=== PATIENT | male | born 1955 ===

== ENCOUNTER 2017-10-20 12:53 | Emergency (ER) | payer MEDICAID ==
[2017-10-20 12:53] VITALS: BMI 21.6
[2017-10-20 13:09] VITALS: BP 95/60; PULSE 60; RESP 18; TEMP 98.1; O2SAT 99
[2017-10-20] MEDS ORDERED: Tdap Vaccine 0.5 ml Vial (10-64 yrs) IM ONE ×2 (13:21→13:29)
--- NOTE | 2017-10-20 13:24 | ED PDOC ---
Upper Extremity Pain/Injury Time Seen by Provider: 10/20/17 13:17 Chief Complaint (Nursing): Abnormal Skin Integrity Chief Complaint (Provider): Thumb Laceration History Per: Patient Onset/Duration Of Symptoms: Hrs (x3) Current Symptoms Are (Timing): Still Present Additional Complaint(s): 62 y/o right hand dominant male presents to the ED complaining of left thumb laceration sustained when he was using a knife and accidentally cut his thumb 3 hours ago. Patient reports he is unsure of his last tetanus vaccination. Denies pain or active bleeding at this time. PMD: [facility] Past Medical History Reviewed: Historical Data, Nursing Documentation, Vital Signs Vital Signs: Last Vital Signs Temp 98.1 F 10/20/17 13:06 Pulse 60 10/20/17 13:06 Resp 18 10/20/17 13:06 BP 95/60 L 10/20/17 13:06 Pulse Ox 99 10/20/17 13:06 - Medical History PMH: Asthma - Surgical History Surgical History: Back Surgery - Family History Family History: States: No Known Family Hx - Living Arrangements Living Arrangements: With Family - Social History Current smoker - smoking cessation education provided: No Alcohol: None Drugs: Denies - Home Medications Home Medications: Ambulatory Orders Medication Instructions Recorded Acetaminophen 650 mg PO Q4H PRN #20 tablet 07/28/17 Fluticasone Propionate [Flonase] 2 spr NS DAILY PRN #1 bottle 07/31/17 Polymyxin/Trimethoprim Sulfate 1 drop BOTHEYES Q3 #1 bottle 07/31/17 [Polytrim Ophth Soln] - Allergies Allergies/Adverse Reactions: Allergies Allergy/AdvReac Type Severity Reaction Status Date / Time pollen extracts Allergy RASH Verified 07/24/16 15:18 Review of Systems ROS Statement: Except As Marked, All Systems Reviewed And Found Negative Musculoskeletal: Positive for: Hand Pain (Left thumb laceration) Physical Exam - Reviewed Nursing Documentation Reviewed: Yes Vital Signs Reviewed: Yes - Physical Exam Appears: Positive for: Well, Non-toxic, No Acute Distress Head Exam: Positive for: ATRAUMATIC Skin: Positive for: Normal Color. Negative for: Rash Eye Exam: Positive for: Normal appearance Neck: Positive for: Normal, Painless ROM Cardiovascular/Chest: Positive for: Regular Rate, Rhythm Respiratory: Positive for: Normal Breath Sounds Extremity: Positive for: Normal ROM, Other (1 cm superficial laceration to the finger pad of the left thumb. No active bleeding, N/V intact). Negative for: Deformity Neurologic/Psych: Positive for: Alert, Oriented. Negative for: Motor/Sensory Deficits - ECG O2 Sat by Pulse Oximetry: 99 (RA) Pulse Ox Interpretation: Normal Medical Decision Making Medical Decision Making: Time: 1321 Impression: Thumb Laceration Plan: -- Adacel IM -- Sutures are not indicated as wound is very superficial. Wound was cleansed with normal saline, bacitracin and bandage applied. Patient given wound care instructions. ___ Scribe Attestation: Documented by Екатерина Gillespie, acting as a scribe for Ivelisse Mercado PA-C. Provider Scribe Attestation: All medical record entries made by the Scribe were at my direction and personally dictated by me. I have reviewed the chart and agree that the record accurately reflects my personal performance of the history, physical exam, medical decision making, and the department course for this patient. I have also personally directed, reviewed, and agree with the discharge instructions and disposition. Disposition - Clinical Impression Clinical Impression: Thumb laceration, Requires a booster tetanus - Patient ED Disposition Is Patient to be Admitted: No Counseled Patient/Family Regarding: Diagnosis, Need For Followup - Disposition Referrals: [facility] [Outside] Disposition: Routine/Home Disposition Time: 13:49 Condition: STABLE Additional Instructions: Wash wound daily with soap and water. Tylenol for pain as needed. Follow-up with clinic as needed. Instructions: Laceration Repair, Diphtheria and Tetanus Toxoids, and Acellular Pertussis Vaccine Forms: [employer] (Azeri) Print Language: WELSH
== END 2017-10-20 14:08 | disposition home or self-care (01) ==
LOC: H.ER 12:53
DX: S61.012A Laceration without foreign body of left thumb without damage to nail, initial encounter (principal); W26.0XXA Contact with knife, initial encounter; Y92.89 Other specified places as the place of occurrence of the external cause

== ENCOUNTER 2018-02-13 10:11 | Emergency (ER) | payer MEDICAID ==
[2018-02-13 10:24] VITALS: BMI 20.8
--- NOTE | 2018-02-13 10:50 | ED PDOC ---
Lower Extremity Pain/Injury Time Seen by Provider: 02/13/18 10:29 Chief Complaint (Nursing): Lower Extremity Problem/Injury Chief Complaint (Provider): calf pain History Per: Patient History/Exam Limitations: no limitations Onset/Duration Of Symptoms: Days (1 week) Current Symptoms Are (Timing): Still Present Additional Complaint(s): Pt. with calf pain right side. Swelling right calf pain. No injury, weakness, headaches, dizziness, chest pain, dyspnea, fever. No back pain. No long distance travel, hormone use. Past Medical History Reviewed: Nursing Documentation, Vital Signs Vital Signs: Last Vital Signs Temp 97 F L 02/13/18 10:22 Pulse 100 H 02/13/18 10:22 Resp 18 02/13/18 10:22 BP 114/82 02/13/18 10:22 Pulse Ox 100 02/13/18 10:22 - Medical History PMH: Asthma Denies: Anxiety, Bipolar Disorder, Depression, Paranoia, Post Traumatic Stress Disorder, Chronic Kidney Disease, Schizophrenia - Surgical History Surgical History: Back Surgery - Family History Family History: States: Unknown Family Hx - Home Medications Home Medications: Ambulatory Orders Medication Instructions Recorded Acetaminophen 650 mg PO Q4H PRN #20 tablet 07/28/17 Fluticasone Propionate [Flonase] 2 spr NS DAILY PRN #1 bottle 07/31/17 Polymyxin/Trimethoprim Sulfate 1 drop BOTHEYES Q3 #1 bottle 07/31/17 [Polytrim Ophth Soln] Ibuprofen [Motrin] 600 mg PO TID 7 Days tab 02/13/18 - Allergies Allergies/Adverse Reactions: Allergies Allergy/AdvReac Type Severity Reaction Status Date / Time pollen extracts Allergy RASH Verified 07/24/16 15:18 Review of Systems Constitutional: Negative for: Weakness Cardiovascular: Negative for: Chest Pain Respiratory: Negative for: Shortness of Breath Gastrointestinal: Negative for: Nausea, Vomiting, Abdominal Pain Musculoskeletal: Positive for: Leg Pain Skin: Negative for: Rash Neurological: Negative for: Weakness, Numbness, Dizziness Physical Exam - Reviewed Nursing Documentation Reviewed: Yes Vital Signs Reviewed: Yes - Physical Exam Appears: Positive for: Non-toxic, No Acute Distress Neck: Positive for: Normal, Painless ROM Cardiovascular/Chest: Positive for: Regular Rate, Rhythm Respiratory: Positive for: CNT, Normal Breath Sounds Pulses-Dorsalis Pedis (R): 2+ Back: Positive for: Normal Inspection. Negative for: L CVA Tenderness, R CVA Tenderness Extremity: Positive for: Normal ROM, Tenderness (R calf with trace swelling; no erythema or induration.), Calf Tenderness (R) Neurologic/Psych: Positive for: Alert, Oriented - ECG O2 Sat by Pulse Oximetry: 100 Pulse Ox Interpretation: Normal - Other Rad US X-Ray Interpretation: no acute - Progress ED Course And Treament: 1418: Stable. AAOx3. Pain free. Tolerated PO. FU with pcp. Disposition - Clinical Impression Clinical Impression: Leg pain - Patient ED Disposition Is Patient to be Admitted: No Counseled Patient/Family Regarding: Studies Performed, Diagnosis, Need For Followup, Rx Given - Disposition Referrals: [facility] [Outside] - 02/15/18 Disposition: Routine/Home Disposition Time: 12:19 Condition: STABLE Additional Instructions: Return if not better in 3 days. Prescriptions: Ibuprofen [Motrin] 600 mg PO TID 7 Days tab Instructions: Muscle and Bone Pain (DC) Print Language: BAHAMIAN
[2018-02-13 11:11] VITALS: O2SAT 100
[2018-02-13 14:09] VITALS: BP 133/87; PULSE 56; RESP 16; TEMP 98.6
--- NOTE | 2018-02-15 10:36 | US ---
Date of service: 02/13/2018 PROCEDURE: Right lower extremity venous duplex Doppler. HISTORY: r/o dvt COMPARISON: None available. TECHNIQUE: Common femoral, superficial femoral, popliteal and posterior tibial veins were evaluated. Flow was assessed with color Doppler, compressibility, assessment of phasic flow and augmentation response. FINDINGS: COMMON FEMORAL VEIN: Unremarkable. SUPERFICIAL FEMORAL VEIN: Unremarkable. POPLITEAL VEIN: Unremarkable. POSTERIOR TIBIAL VEIN: Unremarkable. OTHER FINDINGS: None. IMPRESSION: No evidence of deep venous thrombosis in the right lower extremity.
== END 2018-02-13 14:30 | disposition home or self-care (01) ==
LOC: H.ER 10:11
DX: M79.661 Pain in right lower leg (principal)